=== PATIENT | female | born 1980 | race African-American/Black ===

== ENCOUNTER 2022-08-23 07:26 | Emergency (ER) | payer BC ==
[~2022-08-23] VITALS: Ht 167.6 cm; Wt 68.0 kg
== END 2022-08-23 10:57 | disposition home or self-care (01) ==
LOC: ER 07:26
DX: S93.691A Other sprain of right foot, initial encounter (principal); X58.XXXA Exposure to other specified factors, initial encounter; Y93.89 Activity, other specified; Y92.89 Other specified places as the place of occurrence of the external cause; Y99.8 Other external cause status